=== PATIENT | female | born 1990 | race Caucasian/White ===

== ENCOUNTER 2016-12-10 19:50 | Inpatient (IN) | payer OTHER ==
--- NOTE | 2016-12-10 19:44 | EDPHY ---
HPI/HX/ROS/PE/MDM Narrative: CHIEF COMPLAINT: Injury causing deformity to the lower left leg HPI: The patient is a 19 y/o female arriving via EMS after slipping while hiking causing a visible deformity and pain in her lower left left. She was descending from [place] when she slipped on a steep section of trail and slid. She was in "10/10" pain initially and EMS reports a deformity to her lower left leg. She denies hitting her head, head, neck, or spinal pain, or any other associated symptoms. REVIEW OF SYSTEMS: Aside from elements discussed in the HPI, a comprehensive 10-point review of systems was reviewed and is negative. PMH: Denies. SOCIAL HISTORY: Blayne, lives in [facility] from [place]. PHYSICAL EXAM: General:Patient is alert, in no acute distress. ENT:Eyes are normal to inspection. ENT inspection normal. Neck: Normal inspection. Full range of motion. Respiratory:No respiratory distress. Breath sounds normal bilaterally. Cardiovascular: Regular rate and rhythm. Strong peripheral pulses. Normal cap refill in all toes of left foot. Abdomen:The abdomen is nontender to palpation. There are no peritoneal signs. There are normal bowel sounds. Back: Normal to inspection. No tenderness to palpation. Skin: Normal color. No rash. Warm and dry. Extremities: Deformity to the distal tibia. Left leg too painful to move. Can move all toes on the left foot normally. Neuro: Oriented x3. Normal motor function. Normal sensory function. ED Course: 2012: I reviewed this patient's X-ray. Fractures to both the tibia and the fibula are present. 2020: I spoke with Dr. Hughes regarding this patient. He will admit for surgery. MDM: This patient presents with closed tib-fib fx after fall. I see no signs of other significant trauma. She will require admission to the hospital for fixation and treatment. - Data Points Imaging Results: Imaging Impressions Tibia/Fibula X-Ray 12/10/16 19:58 Impression: Fractures of proximal fibula and distal tibia. Study: X-ray of the right lower leg Indication: Deformity, pain Results: X-ray of the right lower leg was obtained. The results of the study are : tibia and fibula fracture The study was read by the radiologist, Dr. Fisher. I viewed the images myself on the PACS system. Imaging: Discussed imaging studies w/ will call order clerk Radiologist, I viewed and interpreted images myself Medications Given: Discontinued Medications Fentanyl (Sublimaze) 100 mcg IVP EDNOW ONE Stop: 12/10/16 20:01 Last Admin: 12/10/16 20:00 Dose: 100 mcg Hydromorphone HCl (Dilaudid) 0.5 mg IVP EDNOW ONE Stop: 12/10/16 20:17 Last Admin: 12/10/16 20:21 Dose: 0.5 mg General Initial Vital Signs: Initial Vital Signs Heart Rate 96 12/10/16 20:22 Respiratory Rate 18 12/10/16 20:22 Blood Pressure 143/93 H 12/10/16 20:22 O2 Sat (%) 95 12/10/16 20:22 Allergies/Adverse Reactions: No Known Allergies Allergy (Verified 12/10/16 20:22) Home Medications: Medication Instructions Recorded Desogestrel-Ethinyl Estradiol 1 each PO DAILY 12/10/16 [Apri 28 Day Tablet] Acetaminophen [Tylenol 325mg (*)] 1,000 mg PO Q8H PRN 10 Days #30 12/11/16 tab NS Aspirin [Aspirin 325 mg (*)] 325 mg PO DAILY #10 tab 12/11/16 HYDROmorphone HCL [Dilaudid 2 mg 2 mg PO Q4 PRN #30 tab 12/11/16 (*)] Ibuprofen [Motrin (*)] 800 mg PO Q8HRS 10 Days #30 tab 12/11/16 Ondansetron Odt [Zofran Odt 4 mg 4 mg PO Q6 PRN #10 tab 12/11/16 (*)] oxyCODONE HCL [Oxycodone HCl] 5 mg PO Q4 #30 tablet 12/11/16 Departure - Departure Disposition: To OP Cath/Surgery Clinical Impression: Tibia/fibula fracture Qualifiers: Encounter type: initial encounter Fracture type: closed Laterality: left Qualified Code(s): S82.202A - Unspecified fracture of shaft of left tibia, initial encounter for closed fracture Condition: Good Report Scribed for: Beau Perea Report Scribed by: Melony Sanno Date of Report: 12/10/16 Time of Report: 19:44 Physician Review and Approval Statement: Portions of this note were transcribed by an ED scribe. I personally performed the history, physical exam, and medical decision making; and confirm the accuracy of the information in the transcribed note.
[2016-12-10] MEDS ORDERED: fentaNYL 100 MCG/2 ML INJ ONE ×4 (19:57→23:14)
[2016-12-10] MEDS ORDERED: fentaNYL 100 MCG/2 ML INJ IVP ONE (20:00)
[2016-12-10] MEDS ORDERED: HYDROmorphONE/DILAUDID 1 MG/ML INJ IVP ONE (20:16)
[2016-12-10] MEDS ORDERED: HYDROmorphONE/DILAUDID 1 MG/ML INJ ONE ×2 (20:17→23:35)
[2016-12-10] MEDS ORDERED: ceFAZolin 2 GM/DEXTROSE 100 ML IV ONE (21:05)
[2016-12-10] MEDS ORDERED: ONDANSETRON 4 MG/2 ML VIAL IVP PRN ×2 (21:06→22:43)
[2016-12-10] MEDS ORDERED: ACETAMINOPHEN 325 MG TAB PO PRN (21:06)
[2016-12-10] MEDS ORDERED: HYDROCODONE/APAP 5/325 TAB PO PRN (21:06)
[2016-12-10] MEDS ORDERED: ROPIVACAINE HCL 20 MG/10 ML INJ EP ONE ×2 (21:09→22:46)
[2016-12-10] MEDS ORDERED: LR 1,000 ML IV ONE (21:09)
[2016-12-10] MEDS ORDERED: D5W 1/2 NS W/ 20 KCl/L 1,000 ML IV SCH (21:15)
[2016-12-10] MEDS ORDERED: ceFAZolin 2 GM/SWFI 2 GM/20 ML SYR IVP ONE (21:30)
--- NOTE | 2016-12-10 21:42 | GCON ---
[f rep st] CONSULTATION ORTHOPEDIC EMERGENCY ROOM CONSULT DATE OF CONSULTATION: 12/10/2016 CHIEF COMPLAINT: Left leg pain. DIAGNOSIS: Closed tib-fib fracture. BRIEF HISTORY OF PRESENT ILLNESS: A 26-year-old female, who was hiking up [place] with her dog. W hen she was descending she slipped and twisted her left leg. Extrication by 1st responders. Brought to the emergency room. Isolated left tib-fib fracture by x-ray. No other injuries. Please see det ails of ER H and P. PERTINENT ORTHOPEDIC EXAMINATION: UPPER EXTREMITIES: Reveals bilateral upper extremities with nonpa inful shoulder elbow and wrist range of motion. ABDOMEN: Soft. PELVIS: Stable. LOWER EXTREMITIES : Right lower extremity with the hip, knee and ankle range of motion without pain. The left leg is splinted. She has mobile toes. No pain with passive range of motion of her toes. She has intact EH L and FHL with brisk refill and warm toes. X-RAYS: Suboptimal films showing only laterals, show a distal tibia fracture and a proximal fibula f racture. IMPRESSION/RECOMMENDATION: Tib-fib fracture. Spiral oblique. Recommend surgical fixation. I spoke with her parents on the phone in [place]. She enjoys [employer]. She [place] moved [place] 8 [place] ago and works for [employer]. Patient consented for treatment, intramedullary nail left tibia. All questions answered. TIME SPENT: Half hour at the bedside. /[id number]/MODL
[2016-12-10] MEDS ORDERED: ROCURONIUM 50 MG/5 ML VIAL ONE (21:44)
[2016-12-10] MEDS ORDERED: PROPOFOL/EMULSION 500 MG/50 ML BOTTLE IV ONE (21:44)
--- NOTE | 2016-12-10 21:58 | PDANEPAE ---
ANE History of Present Illness 26 yo for orif tibia ANE Past Medical History - Cardiovascular History Hx Hypertension: No Hx Arrhythmias: No Hx Chest Pain: No Hx Coronary Artery / Peripheral Vascular Disease: No Hx CHF / Valvular Disease: No Hx Palpitations: No - Pulmonary History Hx Oxygen in Use at Home: No Hx Sleep Apnea: No - Endocrine History Hx Diabetes: No ANE Review of Systems Review of systems is: negative Review of Systems: - Exercise capacity METS (RN): 4 METS ANE Patient History - Allergies Allergies/Adverse Reactions: No Known Allergies Allergy (Verified 12/10/16 20:22) - Home Medications Home medications: home medication list seen and reviewed Home Medications: Desogestrel-Ethinyl Estradiol [Apri 28 Day Tablet] 12/10/16 [Last Taken Unknown ] - NPO status NPO Since - Liquids (Date): 12/10/16 NPO Since - Liquids (Time): 18:00 NPO Since - Solids (Date): 12/10/16 NPO Since - Solids (Time): 12:00 - Anes Hx Anes Hx: no prior problems - Smoking Hx Smoking Status: Never smoked ANE Labs/Vital Signs - Vital Signs Blood Pressure: 125/73 Heart Rate: 96 Respiratory Rate: 18 O2 Sat (%): 97 Height: 5 ft 6 in Weight: 61.235 kg ANE Physical Exam - Airway Neck exam: FROM Mallampati Score: Class 1 Mouth exam: normal dental/mouth exam - Pulmonary Pulmonary: no respiratory distress - Cardiovascular Cardiovascular: regular rate and rhythym - ASA Status ASA Status: I ANE Anesthesia Plan Anesthesia Plan: general endotracheal anesthesia Urgent/Emergent Case: Erikca arreguin completed preop but documented later for safe timely pt care
[2016-12-10] MEDS ORDERED: ALBUTEROL 3 ML DEYVIAL IH PRN (22:43)
[2016-12-10] MEDS ORDERED: NALOXONE HCL 0.4 MG/ML INJ IVP PRN (22:43)
[2016-12-10] MEDS ORDERED: MEPERIDINE 25 MG/ML SYR IVP PRN (22:43)
--- NOTE | 2016-12-10 23:09 | POSTANESTH ---
Post Anesthetic Evaluation Cardiovascular Status: Normal, Stable Respiratory Status: Normal, Stable Level of Consciousness/Mental Status: Can Participate in Eval Pain Control: Adequate, Prn Tx Ordered Nausea/Vomiting Control: Adequate, Prn Tx Ordered
[2016-12-10] MEDS ORDERED: MEPERIDINE 25 MG/ML SYR ONE (23:14)
[2016-12-10] MEDS: fentaNYL 100 MCG/2 ML INJ IVP PRN ×2 (23:22→23:31)
[2016-12-10] MEDS: HYDROmorphONE/DILAUDID 1 MG/ML INJ IVP PRN ×2 (23:35→23:45)
[2016-12-11] MEDS: OXYCODONE/APAP 5/325 TAB PO PRN ×3 (00:30→08:35)
--- NOTE | 2016-12-11 06:23 | GOP ---
[f rep st] OPERATIVE REPORT DATE OF OPERATION: 12/10/2016 SURGEON: Rakel Hughes MD PREOPERATIVE DIAGNOSIS: Closed left distal tibia fracture with a proximal fibular component. POSTOPERATIVE DIAGNOSIS: Closed left distal tibia fracture with a proximal fibular component. PROCEDURE PERFORMED: Closed reduction and intramedullary nailing of left tibia fracture. FINDINGS: ESTIMATED BLOOD LOSS: Minimal. INDICATIONS: Please see details of H and P. A 26-year-old female, mechanical fall, twisting left le g injury. Presents for operative fixation of unstable distal tibia and proximal fibula fracture tors ional component. DESCRIPTION OF PROCEDURE: Patient identified in the preoperative holding area. Consent laterality a nd preoperative antibiotics were confirmed and delivered. All questions were answered. I spoke with her father in [place]. Her friend was by her bedside. Risks, benefits, expectations, alternati ves were discussed, and she would like to proceed with surgery. Patient brought into the operating room, general anesthesia on the gurney. [facility] A left greater trochanter bump was used. Left lower extremity was prepped and draped in usual sterile fashion. We did not use a tourniquet. We set up a large triangle to close reduce t his. Fluoroscopic images confirmed nice reduction in AP and lateral planes. We made a midline dawson la incision. We did a medial patellar arthrotomy, placed a guide pin, and over-reamed. Pin confirma tion with the C-arm in the AP and lateral planes. We used a ball-tipped guidewire, successfully plac ed it to the level of the plafond, checked the length and measured about a 330 mm nail. We successfu lly reamed from 8.5 to 10 mm and placed a 9 mm nail. We placed a proximal interlock and 2 distal int erlocks. We made sure that the tibial tubercle was aligned up with the 2nd metatarsal. The attitude of her well leg and her normal leg in full extension was resting external rotation of about 20 degre es. She did have noticeable ankle stiffness to neutral dorsiflexion, which was similar to the contra lateral side as well. The wounds were copiously washed out with 500 cc warm normal saline. We close d the arthrotomy with running 2-0 PDS, Paratenon with 3-0 Monocryl, subcutaneous tissues with 3-0 Mon ocryl, and skin with Dermabond. The distal stab incisions were closed with hillary. 20 cc of 0.2% r opivacaine were injected throughout the incisions. Dermabond, Mastisol, Steri-Strips used. Xeroform , 4 x 4's, ABD, sterile Juan Jose, and cast boot were applied. IMPLANTS USED: Synthes 330 mm nail by 9 mm diameter. COMPLICATIONS: None. DISPOSITION: Extubated awake to the PACU in stable condition. /[id number]/MODL
[2016-12-11] MEDS ORDERED: ENOXAPARIN 40 MG/0.4 ML SYR SC SCH (09:00)
--- NOTE | 2016-12-11 11:11 | SOAPPROG ---
JESSAAP Progress Note Assessment/Plan: 26 yo female, pod #1 s/p left tibia IMN for left tib/fib fracture performed by dr. vazquez on 12/11/16. -LLE: flat foot weight bearing, 25% weight, in fracture boot, patient may use walker or crutches if cleared by PT. -proph: asa 325 x10 days, mel hoes to unaffected leg, scd to unaffected leg, incentive spirometry -pain control: ibuprofen 800mg q8h alternating with tyelnol 1000mg q8h, oxycodone 5mg 1-2 tab q4-6h prn pain, patient also extensively counseled to aggressive elevate and ice her lower extremity whenever possible -okay to discharge home today if cleared by PT -follow up with dr. pagan office 1 week after surgery for wound check 12/11/16 11:11 Subjective: Patient denies any issues overnight except for the pain did not seem to be well managed off of the percocet, and she didn't sleep well. Patient denies any numbness/tingling, denies any cp/sob, denies fevers/chills, reports she voided but has not moved her bowels yet. Mother is flying in from [place], but may not make todays flight due to incliment weather. Objective: LLE: dressings c/d/i, in fracture boot, no ankle or knee rom assessed, full digital rom, nvid w/ brisk cap refill Vital Signs Temp Pulse Resp BP Pulse Ox 37.0 C 73 16 123/72 H 96 12/11/16 07:52 12/11/16 07:52 12/11/16 07:52 12/11/16 07:52 12/11/16 07:52 12/10/16 12/11/16 12/12/16 05:59 05:59 05:59 Intake Total 1330 780 Output Total 450 500 Balance 880 280 - Pending Discharge Pending Discharge Within 24 Hours: Yes Pending Discharge Date: 12/12/16 Pending Discharge Time: 11:00 ICD10 Worksheet Patient Problems: Problems Problem Status Onset Tibia/fibula fracture Acute
[2016-12-11] MEDS ORDERED: HYDROmorphONE/DILAUDID 2 MG TAB PO PRN (11:20)
[2016-12-11 11:39] VITALS: O2SAT 97
[2016-12-11] MEDS: oxyCODONE IR 5 MG TAB PO PRN ×2 (11:53→16:23)
[2016-12-11] MEDS: IBUPROFEN 800 MG TAB PO SCH ×2 (11:58→14:44)
[2016-12-11] MEDS ORDERED: LACTULOSE 20 GM/30 ML UDCUP PO PRN (15:01)
[2016-12-11] MEDS ORDERED: BISACODYL 10 MG SUPP PR PRN (15:01)
[2016-12-11] MEDS ORDERED: POLYETHYLENE GLYCOL 3350 17 GM PKT PO PRN (15:01)
[2016-12-11] MEDS ORDERED: MAGNESIUM HYDROXIDE 30 ML UDCUP PO PRN (15:01)
[2016-12-11] MEDS ORDERED: FLU VACC QS 2017-18 (3YR+)/PF 0.5 ML SYR (FLUARIX QUAD) IM ONE (15:28)
[2016-12-11] MEDS ORDERED: SENNOSIDES/DOCUSATE SODIUM TAB PO SCH (15:30)
[2016-12-11 16:18] VITALS: BP 108/64; PULSE 63; RESP 16; TEMP 98.5
--- NOTE | 2016-12-13 15:06 | ASDISCHSUM ---
Discharge Information Plan Status:Home with No Needs Medically Cleared to Leave: Discharge Date:12/11/2016 06:27 PM D/C Disposition:Home, Routine, Self-Care ADT D/C Disposition:Home, Routine, Self-Care Projected Discharge Date:12/11/2016 06:27 PM Transportation at D/C: Discharge Delay Reason: Follow-Up Date:12/11/2016 06:27 PM Discharge Slot: Final Diagnosis: Placement Information Patient Contact Information Contact Name:CHRISTIANE Relationship:Friend Address: Work Phone: City: [facility] Phone: State/Zip Code: Email: Financial Information Financial Class:[facility] Primary Plan Desc:[employer] OPEN ACC LOCAL Primary Plan Number:[id number] Secondary Plan Desc: Secondary Plan Number: Assessment Information Intervention Information Intervention Type:*Incorrect Registration Date of Service:12/11/2016 08:09 AM Patient Type:Inpatient Staff Member:SANGEETHA Landa, Afsaneh Hours: Discipline: Severity: Comment:
== END 2016-12-11 18:27 | disposition home or self-care (01) | DRG 494 ==
LOC: OBSVTOIN 20:21 → F3N 23:58
PROVIDERS: ADMIT Orthopaedic Surgery; ATTEND Orthopaedic Surgery
PROC: 0QSH06Z Reposition Left Tibia with Intramedullary Internal Fixation Device, Open Approach (ICD-10-PCS; principal; 2016-12-10 21:15)
DX: S82.392A Other fracture of lower end of left tibia, initial encounter for closed fracture (principal); S82.432A Displaced oblique fracture of shaft of left fibula, initial encounter for closed fracture; W01.0XXA Fall on same level from slipping, tripping and stumbling without subsequent striking against object, initial encounter; Y93.01 Activity, walking, marching and hiking; Y92.828 Other wilderness area as the place of occurrence of the external cause; Z23 Encounter for immunization
CPT/HCPCS: 96374; 97161-GP; 97165-GO; C1713; C1769; G0008; J0690; J1170; J1650; J2704; J2795; J3010